=== PATIENT | female | born 1970 | race Caucasian/White ===

== ENCOUNTER 2016-10-27 23:26 | Emergency (ER) | payer OTHER ==
[~2016-10-27] VITALS: Ht 162.6 cm; Wt 60.0 kg
[2016-10-27 23:30] VITALS: BP 130/83; PULSE 84; RESP 18; TEMP 98.3; O2SAT 97
[2016-10-27] MEDS ORDERED: HYDR-3533 PO (23:55)
[2016-10-28] MEDS ORDERED: ACETAMINOPHEN/HYDROcodone 325 MG/5 MG TAB PO ONE
--- NOTE | 2016-10-28 00:07 | PD ---
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 She states that she was holding back the pannus of a large patient when she states that the belly came back pushing her left arm back causing it to pop. She had momentary tingling down her left arm into her left little finger and ring finger. Since then she has had pain in her left shoulder with crepitus. She denies any focal numbness or weakness. She states the pain is mild to moderate. Worse with raising her arm up. She has some comfort with holding it against her body. She denies any other injuries. No prior injury. [facility] Past Medical History Narrative Medical Coronary artery disease, cardiomyopathy, aortic aneurysm Cardiovascular Problems: Yes (HEART DISEASE, [place] ) Tetanus Vaccination: < 5 Years ?: Not Past Surgical History Narrative Surgical Tonsillectomy, appendectomy, cholecystectomy Hysterectomy: Yes Social History Alcohol Use: No Tobacco Use: No Substance Use: No Allergies-Medications (Allergen,Severity, Reaction): Coded Allergies: No Known Allergies (Unverified , 10/27/16) Reported Meds & Prescriptions Reported Meds & Active Scripts Active Lortab (Hydrocodone-Acetaminophen) 5-325 Mg Tab 1 Tab PO Q8HR PRN Review of Systems Except as stated in HPI: all other systems reviewed are Neg Physical Exam Narrative GENERAL: This is a well-nourished, well-developed patient, in no apparent distress. SKIN: No rashes, ecchymoses or lesions. Warm and dry. HEAD: Atraumatic. Normocephalic. EYES: PERRL, EOMI, no discharge or injection. No scleral icterus. EARS: Clear NOSE: Nasal turbinates appear normal. THROAT: Mucosa pink and moist. Airway patent. NECK: Trachea midline. supple, moves head freely. LUNGS: Clear to auscultation. CV: Regular in rhythm. ABDOMEN: Soft nontender. EXT: No clubbing cyanosis or edema. Examination of left upper extremity reveals pain to the anterior component of the shoulder. She has crepitus with range of motion. She has decreased forward flexion and elevation of her head. Negative drop test. No joint effusion. No pain in the elbow, wrist or hand. She has intact gross sensation. Median/ulnar/radial nerves intact. Data Data Last Documented VS Vital Signs Date Time Temp Pulse Resp B/P Pulse Ox O2 Delivery O2 Flow Rate FiO2 10/27/16 23:30 98.3 84 18 130/83 97 Room Air Orders Shoulder, Complete (>2vws) (10/27/16 23:53) Ice/Cold Pack (10/27/16 23:53) Splint Or Brace Apply/Monitor (10/27/16 23:53) Acetamin-Hydrocod 325-5 Mg ([place] 5-325 (10/28/16 00:00) Sling Cradle Arm (10/27/16 ) MDM Medical Decision Making Medical Screen Exam Complete: Yes Emergency Medical Condition: Yes Medical Record Reviewed: Yes Interpretation(s) Left shoulder: Negative for acute fracture. No subluxation. Acromial clavicular joint intact. Differential Diagnosis MDM: High Differential diagnoses: Fracture, sprain, strain, dislocation, contusion, neurovascular injury Narrative Course This is left shoulder sprain Patient given Lortab 5 mg by mouth, ice pack and sling. Diagnosis Primary Impression: Sprain of left shoulder Patient Instructions: General Instructions, Narcotic given in the ED Departure Forms: Tests/Procedures, Work Release Special Instructions: No use of the left arm 3 days. Additional Instructions: Rest. Elevation. Sling. Ice. Lortab. Follow-up with workman's comp in the next 3 days. Return to the ER for any problems. Med/Other Pt SpecificInfo: Prescription(s) given Scripts Hydrocodone-Acetaminophen (Lortab)5-325 Mg Tab1 Tab PO Q8HR PRN (PAIN) #12 TAB Prov:Trisha Askew MD 10/27/16 Disposition: 01 DISCHARGE HOME Condition: Stable Rikki Almaguer Oct 28, 2016 00:07
--- NOTE | 2016-10-28 00:28 | RADRPT ---
EXAM DATE/TIME: 10/28/2016 00:11 [place] COMPARISON: No previous studies available for comparison. INDICATIONS : Pt states she was turning a patient and felt a pop in left shoulder. MEDICAL HISTORY : None. SURGICAL HISTORY : None. ENCOUNTER: Initial ACUITY: 1 day PAIN SCORE: 8/10 LOCATION: Left shoulder FINDINGS: Multiple view examination of the left shoulder demonstrates no evidence of fracture or dislocation. The glenohumeral and acromioclavicular joints are maintained. There is normal range of motion betwee n internal and external rotation. Bony mineralization is normal. CONCLUSION: Radiographic appearance of the left shoulder is within normal limits. David Newby MD on October 28, 2016 at 0:26 Board Certified Radiologist. This report was verified electronically.
== END 2016-10-28 00:51 | disposition home or self-care (01) ==
LOC: NEPB 23:26
DX: S43.402A Unspecified sprain of left shoulder joint, initial encounter (principal); X50.0XXA Overexertion from strenuous movement or load, initial encounter; Y93.F9 Activity, other caregiving; Y92.9 Unspecified place or not applicable; Y99.9 Unspecified external cause status
CPT/HCPCS: 73030; 99283